=== PATIENT | female | born 1990 | race Caucasian/White ===

== ENCOUNTER 2021-01-03 09:46 | Emergency (ER) | payer BC ==
[~2021-01-03] VITALS: Ht 172.7 cm; Wt 67.1 kg
[2021-01-03 09:50] VITALS: BP 116/70
--- NOTE | 2021-01-03 10:00 | NUR ---
SEEN AND EXAMINED BY .
--- NOTE | 2021-01-03 10:04 | NUR ---
[employer] AT BEDSIDE FOR XRAY.
[2021-01-03] MEDS ORDERED: DEXA4TAB68 PO (10:20)
--- NOTE | 2021-01-03 10:34 | NUR ---
Patient discharged to home in stable condition. Written and verbal after care instructions given. Patient verbalizes understanding of instruction.
== END 2021-01-03 10:35 | disposition home or self-care (01) ==
LOC: ER 10:01
DX: U07.1 COVID-19 (principal)
CPT/HCPCS: 71045-TC